=== PATIENT | male | born 1970 | race Caucasian/White ===

== ENCOUNTER 2016-08-28 13:01 | Emergency (ER) | payer BC ==
[2016-08-28 13:21] VITALS: RESP 16; TEMP 98.1
[2016-08-28 13:48] LABS: COLOR YELLOW; LEUKOCYTE ESTERASE,URINE NEGATIVE (NEGATIVE); NITRITE,URINE NEGATIVE (NEGATIVE)
[2016-08-28 14:17] LABS: % IMMATURE GRANULYOCYTES 1.4 % (0.0-1.1); ABSOLUTE IMMATURE GRANULOCYTES 0.12 10^3/uL (0.00-0.10); ADD DIFF? NO; ADD MORPH? NO; ADD SCAN? NO; ATYPICAL LYMPHOCYTE FLAG 50 (0-99); FRAGMENT RBC FLAG 0 (0-99); HEMATOCRIT 44.9 % (40.0-51.0); HEMOGLOBIN 15.2 g/dL (13.7-17.5); LEFT SHIFT FLG 10 (0-99); LIPEMIA HEMOLYSIS FLAG 90 (0-99); MEAN CELL HEMOGLOBIN 29.9 pg (27.9-34.1); MEAN CELL HEMOGLOBIN CONCENTR. 33.9 g/dL (32.4-36.7); MEAN CELL VOLUME 88.2 fL (81.5-99.8); MEAN PLATELET VOLUME 10.4 fL (8.7-11.7); PLATELET CLUMPS FLAG 0 (0-99); PLATELET COUNT 201 10^3/uL (150-400); RED BLOOD CELL COUNT 5.09 10^6/uL (4.40-6.38); RED CELL DISTRIBUTION WIDTH 12.4 % (11.5-15.2)
[2016-08-28 14:27] LABS: ANION GAP 12 mEq/L (8-16); CARBON DIOXIDE 27 mEq/l (22-31); CHLORIDE 101 mEq/L (97-110); CREATININE 0.8 mg/dL (0.7-1.3); GLOMERULAR FILTRATION RATE > 60; GLUCOSE 95 mg/dL (70-100); POTASSIUM 4.5 mEq/L (3.5-5.2); SODIUM 140 mEq/L (134-144)
--- NOTE | 2016-08-28 14:38 | EDPHY ---
H & P Time Seen by Provider: 08/28/16 14:29 HPI/ROS: CHIEF COMPLAINT: Abdominal pain HISTORY OF PRESENT ILLNESS: This patient is a 46 year old male who presents to the Emergency Department complaining of acute onset abdominal pain beginning two nights prior to arrival. He has been sick for the past four days with a subjective fever, sore throat, and generalized malaise that he has treated effectively at home with Robitussin and DayQuil. For the last two nights, he has woken up with lower abdominal pain radiating to his lower back. He describes the pain as waxing and waning, cramping, and localized to his lower abdomen. His pain is not exacerbated by eating. He denies nausea, vomiting, or diarrhea. No urinary complaints. He does report that he has been staying in a hotel in [place] and both hotel owners have been sick with similar abdominal cramping. REVIEW OF SYSTEMS: Constitutional: +fever, now subsided; no chills Eyes: No visual changes ENT: +sore throat, now subsided Respiratory: No cough, no shortness of breath Cardiac: No chest pain Gastrointestinal: +abdominal pain, no vomiting, no diarrhea Genitourinary: No hematuria, no dysuria Musculoskeletal: No leg pain or swelling Skin: No rash Neurological: No headache, no numbness, no weakness Psychiatric: No depression Past Medical/Surgical History: Left and right inguinal hernias Social History: ; and children at bedside. Never smoked. Smoking Status: Never smoked Physical Exam: General Appearance: Alert, no distress Eyes: Pupils equal and round, no conjunctival pallor or injection ENT, Mouth: Mucous membranes moist Neck: Normal inspection Respiratory: Lungs are clear to auscultation Cardiovascular: Regular rate and rhythm Gastrointestinal: Abdomen is soft with epigastric tenderness Neurological: A&O, nonfocal, normal gait Skin: Warm and dry, no rash Extremities: Nontender, no pedal edema Psychiatric: Mood and affect normal Constitutional: Initial Vital Signs Temperature (C) 36.7 C 08/28/16 13:17 Heart Rate 72 08/28/16 13:17 Respiratory Rate 16 08/28/16 13:17 Blood Pressure 130/92 H 08/28/16 13:17 O2 Sat (%) 97 08/28/16 13:17 O2 Delivery Mode Room Air Allergies/Adverse Reactions: No Known Allergies Allergy (Verified 01/12/15 17:01) Home Medications: Medication Instructions Recorded NK [No Known Home Meds] 01/12/15 Medical Decision Making ED Course/Re-evaluation: This 46-year-old male presents with acute onset cramping abdominal pain localized to his lower abdomen with radiation to his back. He has been sick with what sounds like a URI that has improved with at-home OTC treatments. He is staying in a hotel where the two owners have reported similar symptoms. He has no additional gastrointestinal complaints. He presents concerned of appendicitis but has no RLQ tenderness. He does have some epigastric tenderness to palpation. He is afebrile at triage. Will proceed with labs, UA, and treatment for pain. IV established. 30mg IV Toradol administered. UA reviewed and is negative for UTI. Labs obtained and are unremarkable. No evidence of appy, other serious etiology of sx. Likely viral etiology, given that hotel owners had similar sx. I discussed lab results with the patient, who is relieved. He reports feeling much better following administration of Toradol and feels comfortable returning home at this time. His abdominal exam is benign. I discussed with him my recommendation that he eat a bland diet and return to the ED with any worsening symptoms. He is agreeable to this. He will be discharged home in good condition. Differential Diagnosis: The differential diagnosis for the patient's abdominal pain included but was not limited to appendicitis, cholecystitis, hernias, testicular torsion, gastritis, and urinary tract infection. - Data Points Laboratory Results: Laboratory Results 08/28/16 14:00 08/28/16 14:00 Medications Given: Discontinued Medications Ketorolac Tromethamine (Toradol) 30 mg IVP EDNOW ONE Stop: 08/28/16 14:44 Last Admin: 08/28/16 14:52 Dose: 30 mg Departure - Departure Disposition: Home, Routine, Self-Care Clinical Impression: Abdominal pain Qualifiers: Abdominal location: generalized Qualified Code(s): R10.84 - Generalized abdominal pain Condition: Good Instructions: Acute Abdominal Pain (ED) Additional Instructions: 1. Eat a bland diet and rest until your symptoms improve. Make sure to drink plenty of fluids. 2. Return to the Emergency Department if you experience high fever or chills, worsening abdominal pain, diarrhea, blood in vomiting or stool, or other serious concerns. 3. If you continue to experience symptoms in the next 24 hours for recheck, please follow-up with your primary care provider. If you do not have a PCP, we have referred you to our on-call provider. --- For your work note: This patient was seen in the Emergency Department on 08/28/2016. He was given no prescriptions. He may return to work on 08/31/2016. Referrals: Luke Calvo MD [Medical Doctor] - As per Instructions Stand Alone Forms: Work Excuse Report Scribed for: Annika Pichardo Report Scribed by: Yulia Walker Date of Report: 08/28/16 Time of Report: 14:34 Physician Review and Approval Statement: 08/28/16 14:34 Portions of this note were transcribed by a medical scheduler. I personally performed a history, physical exam, medical decision making, and confirmed accuracy of information the transcribed note.
[2016-08-28] MEDS ORDERED: KETOROLAC 30 MG/1 ML SDV IVP ONE (14:43)
[2016-08-28 14:58] LABS: ALBUMIN 4.8 g/dL (3.5-5.0); BILIRUBIN-CONJUGATED 0.5 mg/dL (0.0-0.5); BILIRUBIN-UNCONJUGATED 0.5 mg/dL (0.0-1.1)
[2016-08-28 15:34] VITALS: BP 124/88; PULSE 60; O2SAT 96
== END 2016-08-28 15:33 | disposition home or self-care (01) ==
DX: R10.84 Generalized abdominal pain (principal)
CPT/HCPCS: 96374; J1885

== ENCOUNTER → 2016-09-01 | Outpatient (CLI) | payer BC | LOC: CIMAGING 10:06 | PROVIDERS: ATTEND Internal Medicine | DX: R16.1 Splenomegaly, not elsewhere classified (principal); N28.1 Cyst of kidney, acquired | CPT/HCPCS: 76700-PO ==

== ENCOUNTER → 2016-09-14 | Outpatient (CLI) | payer BC | LOC: CIMAGING 12:12 | PROVIDERS: ATTEND Internal Medicine | DX: R10.9 Unspecified abdominal pain (principal) | CPT/HCPCS: 76700-PO ==

== ENCOUNTER → 2016-09-28 | Outpatient (CLI) | payer BC ==
[~2016-09-28] MED LIST: IOPAMIDOL (ISOVUE-300) 100 ML BTL ONE
== END ==
LOC: CIMAGING 09:27
PROVIDERS: ATTEND Internal Medicine
DX: R10.9 Unspecified abdominal pain (principal); K76.89 Other specified diseases of liver; M48.06 Spinal stenosis, lumbar region; M51.26 Other intervertebral disc displacement, lumbar region
CPT/HCPCS: 74160-PO; Q9967